=== PATIENT | male | born 1945 | race Caucasian/White ===

== ENCOUNTER 2019-03-19 09:50 | Observation (INO) | payer MEDICARE, OTHER ==
[2019-03-17 14:49] LABS: BASOPHILS % 0.9 % (0.0-1.0); EOSINOPHILS # (AUTO) 0.1 (0.0-0.4); EOSINOPHILS % 2.2 % (0.0-6.0); HEMATOCRIT 39.9 % (38.2-49.6); HEMOGLOBIN 13.6 g/dL (14.0-18.0); LYMPHOCYTES # (AUTO) 1.7 (1.0-3.2); LYMPHOCYTES % 37.1 % (18.0-39.1); MEAN CORPUSCULAR HEMOGLOBIN 32.2 pg (28-32); MEAN CORPUSCULAR HGB CONC 34.1 g/dL (31-35); MEAN CORPUSCULAR VOLUME 94.5 fL (81-99); MONOCYTES # (AUTO) 0.6 (0.2-0.8); MONOCYTES % 13.4 % (4.4-11.3); NEUTROPHILS # (AUTO) 2.1 (2.1-6.9); NEUTROPHILS % 46.2 % (38.7-80.0); PLATELET COUNT 221 x10e3/uL (140-360); RED BLOOD COUNT 4.22 x10e6/uL (4.3-5.7); RED CELL DISTRIBUTION WIDTH 12.5 % (11.7-14.4)
[2019-03-17 15:00] LABS: INR 0.86; PROTHROMBIN TIME 12.2 seconds (11.9-14.5)
[2019-03-17 15:01] LABS: PARTIAL THROMBOPLASTIN TIME 26.1 seconds (23.8-35.5)
[2019-03-17 15:05] LABS: ANION GAP 10.1 mmol/L (8-16); BLOOD UREA NITROGEN 24 mg/dL (7-26); BUN/CREATININE RATIO 23 (6-25); CALCIUM 9.5 mg/dL (8.4-10.2); CARBON DIOXIDE 24 mmol/L (22-29); CHLORIDE 105 mmol/L (98-107); CREATININE, SERUM 1.06 mg/dL (0.72-1.25); EST GLOMERULAR FILTRATION RATE > 60 ML/MIN (60-); GLUCOSE 90 mg/dL (74-118); POTASSIUM 4.1 mmol/L (3.5-5.1); SODIUM 135 mmol/L (136-145)
--- NOTE | 2019-03-17 15:55 | Diagnostic Imaging Report ---
Chest, 2 views, 03/17/2019. History: Preop, lumbar surgery. Comparison: None available. Findings: The cardiomediastinal silhouette and pulmonary vasculature are within normal limits. The lungs are clear without evidence of consolidation or pleural effusion. Degenerative changes are present in the lower thoracic spine. There are no acute osseous or soft tissue abnormalities. Impression: No acute cardiopulmonary abnormality. Signed by: Cuco Martino on 03/17/2019 3:52 PM
[~2019-03-19] VITALS: Ht 177.8 cm; Wt 75.7 kg
[~2019-03-19 09:50] MED LIST: ACETAMINOPHEN 1000 MG/100 ML 100 ML IV ONE; CALCIUM500 MG PO; COQ-10100 MG PO; GABAPENTIN300 MG PO; IBUPROFEN 800MG/ 250ML 250 ML IV ONE; IRON PO; LIDOCAINE HCL (LTA) 4 ML SOLN ONE; LYRICA75 MG PO; MULTI-VITAMIN1 EACH PO
--- OUTSIDE RECORDS SUMMARY | 2019-03-19 09:53 | XMS REPORT ---
Author Author [facility] Address Unknown Phone Unavailable Care Team Providers Care Rooming House Inspector Name Role Phone BYRON CHUNG Unavailable Unavailable Problems This patient has no known problems. Allergies, Adverse Reactions, Alerts This patient has no known allergies or adverse reactions. Medications This patient has no known medications. Results Test Description Test Time Test Comments Text Results Atomic Results Result Comments CHEST 2 VIEWS 2019-03-17 15:51:00 [place] [address] Patient Name: KEENAN HIGUERA MR #: [id number] : 1945 Age/Sex: 73/M Req #: [id number] [facility] Physician: Ordered by: BYRON CHUNG MD Report #: [id number] Location: OR Room/Bed: Procedure: [id number] DX/CHEST 2 VIEWS Exam Date: 03/17/19 Exam Time: 1500 REPORT STATUS: Signed Chest, 2 views, 03/17/2019. History: Preop, lumbar surgery. Comparison: None available. Findings: The cardiomediastinal silhouette and pulmonary vasculature are within normal limits. The lungs are clear without evidence of consolidation or pleural effusion. Degenerative changes are present in the lower thoracic spine. There are no acute osseous or soft tissue abnormalities. Impression: No acute cardiopulmonary abnormality. Signed by: Naheed Martino on 03/17/2019 3:52 PM Dictated By: NAHEED MARTINO MD 51 Transcribed By: WILLI on 03/17/191551 COPY TO: BYRON CHUNG MD
[2019-03-19] MEDS ORDERED: CEFAZOLIN SOD 2 GM/D5W 50ML 50 ML IV ONE (10:16)
[2019-03-19] MEDS ORDERED: CARISOPRODOL 350 MG TAB PO PRN (14:45)
[2019-03-19] MEDS ORDERED: MORPHINE SULFATE 5 MG/ML VIAL IM PRN (14:45)
[2019-03-19] MEDS ORDERED: CEPACOL SORE THROAT LOZENGES PO PRN (14:45)
[2019-03-19] MEDS ORDERED: ZOLPIDEM TARTRATE 5 MG TAB PO PRN (14:45)
[2019-03-19] MEDS ORDERED: ACETAMINOPHEN 325 MG TAB PO PRN (14:45)
[2019-03-19] MEDS ORDERED: OXYCODONE/ACETAMINOPHEN 5-325 1 EACH TABLET PO PRN (14:45)
[2019-03-19] MEDS ORDERED: PROMETHAZINE HCL (IM) 25 MG/ML VIAL IM PRN (14:45)
[2019-03-19] MEDS ORDERED: HYDROMORPHONE 2MG/ML 2 MG/ML ML IV PRN (14:45)
[2019-03-19] MEDS ORDERED: MAGNESIUM/ALUMINUM/SIMETHICONE 30 ML UDC PO PRN (14:45)
[2019-03-19] MEDS ORDERED: ONDANSETRON HCL INJ 2MG/ML 2ML 2 MG/ML VIAL IV PRN (14:45)
[2019-03-19 15:35] VITALS: BP 142/69
--- NOTE | 2019-03-19 15:35 | NUR ---
Patient arrived from PACU, s/p Lumber Laminectomy, dressing intact. Patient was able to transfer to bed with minimal assistance. at the bedside. POC discussed. Patient and instructed to call for assistance as needed and verbalized understanding. Call mueller within reach.
[2019-03-19 16:00] VITALS: BP 127/77
[2019-03-19] MEDS ORDERED: MORPHINE SULFATE INJ 4 MG/ML INJ 1ML IM PRN (16:00)
--- NOTE | 2019-03-19 16:06 | Diagnostic Imaging Report ---
Exam: Crosstable lateral view of the lumbar spine dated 03/19/2019 at 1:02 PM History: Localization Comparison: None available Findings: Single crosstable lateral portable technique shows 2 wire markers; 1 overlying the L4-L5 disc space and the second one overlying the mid body of L5. Impression: Localization markers of the L-spine. Signed by: Dr. Brijesh Dubose DO on 03/19/2019 4:03 PM
--- NOTE | 2019-03-19 16:08 | Diagnostic Imaging Report ---
Exam: Crosstable portable lateral view of the lumbar spine dated 03/19/2019 at 1:14 PM History: Localization Comparison: None available Findings: Single crosstable lateral view of the lumbar spine shows a wire probe pointing to the L4-L5 disc space. Impression: Localization of the L4-L5 level. Signed by: Dr. Brijesh Dubose DO on 03/19/2019 4:04 PM
[2019-03-19 16:12] VITALS: BP 142/69
[2019-03-19] MEDS: GABAPENTIN 300 MG CAP PO SCH (16:50)
[2019-03-19] MEDS: LACTATED RINGER'S 1,000 ML IV SCH ×3 (16:50→21:02)
[2019-03-19] MEDS ORDERED: ROCURONIUM BROMIDE 10 MG/ML 5ML VIAL ONE (18:33)
[2019-03-19] MEDS ORDERED: GLYCOPYRROLATE INJ 1MG/ 5 ML SYR ONE (18:33)
[2019-03-19] MEDS ORDERED: DEXAMETHASONE SOD PHOS INJ 4 MG/ML VIAL ONE (18:33)
[2019-03-19] MEDS ORDERED: LIDOCAINE HCL 2% JELLY 5 ML TUBE ONE (18:33)
[2019-03-19] MEDS ORDERED: NEOSTIGMINE 5 MG/5ML SYR ONE (18:33)
[2019-03-19] MEDS ORDERED: LIDOCAINE HCL 2% LOCAL INJ 5 ML SDV VIAL INJ ONE (18:33)
[2019-03-19] MEDS ORDERED: SEVOFLURANE INHAL SOLN 250 ML PEN BTL ONE (18:33)
[2019-03-19] MEDS ORDERED: PROPOFOL IV EMULSION 10 MG/ML 20 ML VIAL ONE (18:33)
[2019-03-19] MEDS ORDERED: ONDANSETRON HCL INJ 2MG/ML 2ML 2 MG/ML VIAL ONE (18:33)
[2019-03-19] MEDS ORDERED: MIDAZOLAM HCL 2 MG/2 ML VIAL ONE (18:52)
[2019-03-19] MEDS ORDERED: FENTANYL CITRATE/PF 100MCG/2 ML INJ ONE (18:52)
--- NOTE | 2019-03-19 19:00 | NUR ---
Report given to oncoming shift. Call mueller within reach.
--- NOTE | 2019-03-19 19:36 | Operative Report ---
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 PROCEDURES: Left L4-5 laminotomy, partial medial facetectomy, and microsurgical diskectomy for decompression of L4 nerve root. ANESTHESIA: General. INDICATIONS: The patient is a 73-year-old man, who presents with a superiorly and laterally migrated disk extrusion at L4-5, which superimposed on osseous foraminal stenosis, produces severe compression of the exiting L4 nerve root at the level of the L4-5 disk space. The patient was taken to the operating room for decompression of the L4 nerve root. DESCRIPTION OF PROCEDURE: After induction of general anesthesia, the patient was placed on the operating table in prone position over Arnulfo frame. Lumbar region was prepped and draped in sterile fashion. A preoperative x-ray was obtained. A small midline incision was created. Lumbar fascia was opened to the left of midline and subperiosteal dissection was carried out to expose the left side of the L4 lamina and the hypertrophic L4-5 facet joint. A second x-ray confirmed correct localization. The operating microscope was brought in. The lateral margin of the left L4 lamina and the medial aspect of the L4-5 facet joint was then drilled away with a high-speed drill equipped with a lilliam bur. The ligamentum flavum was resected. The very lateral margin of the dural sac and the axilla of the L4 nerve root came into view. The soft extruded disk material came into view precisely in the region of the axilla of the L4 nerve root. This was mobilized with a micro ball probe and removed several fragments of disk until the L4 nerve root became decompressed in the region of the axilla. More laterally, the chronic disk osteophyte complex compressed the L4 nerve root as well. The opening into the anulus of the disk was enlarged lateral to the dural sac and a thorough diskectomy was carried out. The osteophyte extending laterally from the inferior margin of the L4 end plate was resected and the L4 nerve root was completely decompressed throughout its length. The wound was then copiously irrigated with bacitracin solution. Meticulous hemostasis was secured. A piece of subcutaneous fat was harvested and placed over the L4 nerve root. The lumbar fascia was closed with 0-Vicryl suture. Subcutaneous layer was closed with 2-0 Vicryl sutures. The skin was closed with 3-0 Monocryl sutures and joel. A dressing was applied. The patient was awakened, extubated, and taken to postanesthesia care unit in stable condition. No intraoperative complications were encountered. Estimated blood loss was 10 mL. Omar Peterson MD PP/SAMANTHA /[id number]
[2019-03-19 20:00] VITALS: BP 129/70
[2019-03-19] MEDS: CEFAZOLIN SOD 1 GM/NS 50ML 50 ML IV SCH (21:01)
[2019-03-20] VITALS: BP 103/59
[2019-03-20 04:00] VITALS: BP 106/60
[2019-03-20] MEDS: CEFAZOLIN SOD 1 GM/NS 50ML 50 ML IV SCH (05:10)
[2019-03-20 08:00] VITALS: BP 111/54
[2019-03-20] MEDS ORDERED: MULTIVITAMINS/MINERALS TAB PO SCH (09:00)
[2019-03-20] MEDS ORDERED: PREGABALIN 75 MG CAP PO SCH (09:00)
[2019-03-20] MEDS: GABAPENTIN 300 MG CAP PO SCH (09:04)
[2019-03-20 09:15] VITALS: BP 111/54
--- NOTE | 2019-03-20 09:16 | NUR ---
patient discharged home, prescription and discharge instruction (with handout in the chart )given. Dressing changed on lumbar incision area, steri strip intact there, prescription given, IV canula removed with tip intact, no ss of infiltration noted, he aware of f/up appointments. transported via wheelchair to [facility], not in any distress or pain.
== END 2019-03-20 09:55 | disposition home or self-care (01) ==
LOC: OR 09:50 → PACU V 14:32 → IMCU 15:35
PROVIDERS: ADMIT Neurological Surgery; ATTEND Neurological Surgery
DX: M51.16 Intervertebral disc disorders with radiculopathy, lumbar region (principal); M48.061 Spinal stenosis, lumbar region without neurogenic claudication; Z01.810 Encounter for preprocedural cardiovascular examination; Z01.812 Encounter for preprocedural laboratory examination; Z01.811 Encounter for preprocedural respiratory examination
CPT/HCPCS: 36415; 63047; 71046; 72020; 80048; 85025; 85610; 85730; 86850; 86900; 88304; 93005; G0378 ×2; J0131; J0690 ×2; J1100; J2001 ×2; J2250; J2405; J2704; J3490

== ENCOUNTER 2020-01-03 20:12 | Emergency (ER) | payer MEDICARE, OTHER ==
[~2020-01-03] VITALS: Ht 177.8 cm; Wt 75.7 kg
[~2020-01-03 20:12] MED LIST changes: -ACETAMINOPHEN 1000 MG/100 ML 100 ML IV ONE; -IBUPROFEN 800MG/ 250ML 250 ML IV ONE; -LIDOCAINE HCL (LTA) 4 ML SOLN ONE
[2020-01-03] MEDS ORDERED: ACETAMINOPHEN 325 MG TAB PO ONE (20:45)
[2020-01-03] MEDS ORDERED: SODIUM CHLORIDE 0.9% 1000ML 1,000 ML IV ONE (20:45)
[2020-01-03] MEDS ORDERED: CEFEPIME 2 GM/NS 0.9% 100 ML 100 ML IV ONE (20:45)
[2020-01-03] MEDS ORDERED: SODIUM CHLORIDE 0.9% 1000ML 1,000 ML ONE (20:49)
[2020-01-03 21:06] LABS: BASOPHILS % 0.2 % (0.0-1.0); EOSINOPHILS % 0.3 % (0.0-6.0); HEMATOCRIT 46.3 % (38.2-49.6); HEMOGLOBIN 15.7 g/dL (14.0-18.0); MEAN CORPUSCULAR HEMOGLOBIN 31.6 pg (28-32); MEAN CORPUSCULAR HGB CONC 33.9 g/dL (31-35); MEAN CORPUSCULAR VOLUME 93.2 fL (81-99); MONOCYTES # (AUTO) 0.5 (0.2-0.8); MONOCYTES % 4.8 % (4.4-11.3); NEUTROPHILS % 84.4 % (38.7-80.0); PLATELET COUNT 175 x10e3/uL (140-360); RED BLOOD COUNT 4.97 x10e6/uL (4.3-5.7); RED CELL DISTRIBUTION WIDTH 12.5 % (11.7-14.4)
[2020-01-03 21:10] LABS: INR 0.97; PROTHROMBIN TIME 13.5 seconds (11.9-14.5)
[2020-01-03 21:11] LABS: PARTIAL THROMBOPLASTIN TIME 26.5 seconds (23.8-35.5)
[2020-01-03 21:24] LABS: ALANINE AMINOTRANSFERASE 28 IU/L (0-55); ALBUMIN 3.9 g/dL (3.5-5.0); ALBUMIN/GLOBULIN RATIO 1.1 (0.8-2.0); ALKALINE PHOSPHATASE 73 IU/L (40-150); BLOOD UREA NITROGEN 17 mg/dL (7-26); BUN/CREATININE RATIO 15 (6-25); CALCIUM 9.5 mg/dL (8.4-10.2); CARBON DIOXIDE 24 mmol/L (22-29); CHLORIDE 104 mmol/L (98-107); CREATINE KINASE 69 IU/L (30-200); EST GLOMERULAR FILTRATION RATE > 60 ML/MIN (60-); GLUCOSE 124 mg/dL (74-118); SODIUM 136 mmol/L (136-145)
[2020-01-03 21:32] LABS: B-TYPE NATRIURETIC PEPTIDE2 37.3 pg/mL (0-100)
--- NOTE | 2020-01-03 22:34 | Diagnostic Imaging Report ---
EXAMINATION: CHEST SINGLE (PORTABLE) INDICATION: FEVER, COUGH^Y COMPARISON: Chest x-ray 03/17/2019 FINDINGS: TUBES and LINES: None. LUNGS: Normal lung volumes. Mild central bronchial wall thickening. Bilateral perihilar haziness, left greater than right. No homogeneous airspace opacities. PLEURA: No pleural effusion or pneumothorax. HEART AND MEDIASTINUM: The cardiomediastinal silhouette is normal in size, however there is globular soft tissue density in the lower central mediastinum. BONES AND SOFT TISSUES: No acute osseous lesion. Soft tissues are unremarkable. Degenerative changes in the spine and shoulders. UPPER ABDOMEN: No free air under the diaphragm. IMPRESSION: Findings of bronchitis. Bilateral hilar haziness can be seen with atelectasis or pneumonia. Suspect a moderate hiatal hernia. Signed by: Alexander Gould DO on 01/03/2020 10:31 PM
--- NOTE | 2020-01-03 22:35 | NUR ---
md to room to discuss lab and diagnostic results. pt offered admission by md, pt refused. md states that will discharge c rx for antibiotics. pt instructed on need for follow-up, importance of taking antibiotics. pt instructed to return to er if symptoms worsens or condition does not improve. pt verbalized understanding of instructions.
[2020-01-03 22:47] VITALS: BP 127/73
== END 2020-01-03 23:13 | disposition home or self-care (01) ==
LOC: ER 20:12
DX: R50.9 Fever, unspecified (principal); R05 Cough; J20.9 Acute bronchitis, unspecified; J02.0 Streptococcal pharyngitis
CPT/HCPCS: 36415; 71045; 80053; 82550; 82553; 83518; 83605; 83880; 84484; 85025; 85610; 85730; 87040; 87400; 93005; 99284; J7030

== ENCOUNTER → 2024-09-11 | Outpatient (REF) | payer MEDICARE | LOC: US 11:10 | PROVIDERS: ATTEND Family Medicine Adult Medicine | DX: R16.0 Hepatomegaly, not elsewhere classified (principal) | CPT/HCPCS: 76705 ==

== ENCOUNTER 2024-11-07 11:40 | Emergency (ER) | payer MEDICARE ==
[~2024-11-07] VITALS: Ht 172.7 cm; Wt 75.0 kg
[2024-11-07] MEDS ORDERED: COREG12.5 MG PO (12:29)
[2024-11-07] MEDS ORDERED: ATORVASTATIN CA20 MG PO (12:29)
[2024-11-07] MEDS ORDERED: ASPIRIN81 MG PO (12:29)
[2024-11-07 14:30] VITALS: PULSE 85; RESP 18; TEMP 97.5; O2SAT 97
== END 2024-11-07 17:47 | disposition other institution (70) ==
LOC: FSED 11:51
DX: S72.091A Other fracture of head and neck of right femur, initial encounter for closed fracture (principal); M25.561 Pain in right knee; W01.0XXA Fall on same level from slipping, tripping and stumbling without subsequent striking against object, initial encounter; Y93.01 Activity, walking, marching and hiking; Y92.89 Other specified places as the place of occurrence of the external cause; E78.5 Hyperlipidemia, unspecified; Z95.4 Presence of other heart-valve replacement
CPT/HCPCS: 72192; 99283

== ENCOUNTER 2025-02-27 14:26 | Emergency (ER) | payer MEDICARE ==
[~2025-02-27] VITALS: Ht 172.7 cm; Wt 71.9 kg
[~2025-02-27 14:26] MED LIST changes: +ASPIRIN81 MG PO; +ATORVASTATIN CA20 MG PO; +COREG12.5 MG PO
[2025-02-27 14:30] VITALS: PULSE 104; RESP 18; TEMP 97.5; O2SAT 99
[2025-02-27] MEDS ORDERED: CEFDINIR300 MG PO (14:55)
[2025-02-27] MEDS ORDERED: FLOMAX0.4 MG PO (14:55)
[2025-02-27] MEDS ORDERED: PROBIOTIC & AC1 EACH PO (14:55)
[2025-02-27] MEDS: CEFTRIAXONE 1 GM VIAL IM ONE (15:00)
[2025-02-27] MEDS ORDERED: LIDOCAINE HCL 1% 2 ML AMP ONE (15:00)
[2025-02-27 15:10] VITALS: BP 153/86; PULSE 103
== END 2025-02-27 15:09 | disposition home or self-care (01) ==
LOC: FSED 14:32
DX: R30.0 Dysuria (principal); N41.0 Acute prostatitis; E78.5 Hyperlipidemia, unspecified; Z85.46 Personal history of malignant neoplasm of prostate; Z95.4 Presence of other heart-valve replacement
CPT/HCPCS: 81003; 99284; J0696; J2003